=== PATIENT | female | born 1970 | race Caucasian/White ===

== ENCOUNTER → 2017-02-28 | Outpatient (CLI) | payer BC ==
--- NOTE | 2017-02-28 10:38 | KCIC ---
DATE: 02/28/2017 EXAM: MAMMO WHITNEY SCREENING BILATERAL HISTORY: Routine screening COMPARISON: 04/06/2015 The breast parenchyma shows scattered fibroglandular densities. Breast parenchyma level B. FINDINGS: 2-D and 3-D tomosynthesis imaging was performed in CC and MLO projections. There is a smooth 1.5 cm nodule at approximately the 3:00 location anteriorly in the left breast. It appears to have decreased slightly in size since the 2014 study. No new or enlarging breast densities are seen. Benign-appearing lymph node type densities are present in the axillary regions. No suspicious microcalcifications have developed. IMPRESSION: Stable mammograms without evidence of malignancy. BI-RADS CATEGORY: 2 BENIGN FINDING(S) RECOMMENDED FOLLOW-UP: 12M 12 MONTH FOLLOW-UP PQRS compliance statement: Patient information was entered into a reminder system with a target due date for the next mammogram. Mammography is a sensitive method for finding small breast cancers, but it does not detect them all and is not a substitute for careful clinical examination. A negative mammogram does not negate a clinically suspicious finding and should not result in delay in biopsying a clinically suspicious abnormality. "Our facility is accredited by the [employer] Mammography [employer]."
== END | disposition home or self-care (01) ==
LOC: KCIC MAMMO 07:48
PROVIDERS: ATTEND Family Medicine
DX: Z12.31 Encounter for screening mammogram for malignant neoplasm of breast (principal)
CPT/HCPCS: 77063; G0202; 77067

== ENCOUNTER → 2020-05-10 | Outpatient (CLI) | payer BC ==
--- NOTE | 2020-05-10 16:25 | KCIC ---
Bilateral digital screening mammograms: Reason for examination: Routine screening. Comparison is made to previous studies dated back to 04/06/2015. Interpretation was made with the benefit of CAD. The skin and nipples show no abnormalities. No abnormal axillary lymph nodes are seen. The breast parenchyma shows scattered fibroglandular density. (Breast density: Category B.) There continues to be a small nodule present in the 1:00 position anteriorly in the left breast which is stable. There also continues to be a small patch of parenchymal density present in the central 3:00 B position of the left breast which is stable. There are no new dominant masses, suspicious calcifications or architectural distortions. Impression: No evidence of malignancy. Recommend routine screening. BI-RADS Category 2: Benign. "Our facility is accredited by the [employer] Mammography [employer]." This patient's information has been entered into a reminder system for the patient to be notified with the results of her examination and a target date for the next mammogram. Electronically signed by: Leela Rodriguez MD (05/10/2020 4:22 PM) [id number]
== END ==
LOC: KCIC MAMMO 15:30
PROVIDERS: ATTEND Family Medicine
DX: Z12.31 Encounter for screening mammogram for malignant neoplasm of breast (principal)
CPT/HCPCS: 77067

== ENCOUNTER → 2021-03-20 | Day surgery (SDC) | payer BC ==
[~2021-03-20] VITALS: Ht 165.1 cm; Wt 80.0 kg
[~2021-03-20] MED LIST: ALPR0.5T6 PO; ATOR20TA PO; BACITRACIN TOPICAL OINT PACKET. TP ONE; BUPIVACAINE MPF 0.25% 30 ML VIAL. ONE; CHOL500021 PO; CYCL10TA2 PO; ESTR30CR VG; HYDROmorphone 2 MG/ML VIAL IVP PRN; IV RINGERS,LACTATED 1000ML 1,000 ML IV SCH; LEVO75TA5 PO; LIDOCAINE 2% PF 5 ML VIAL. ONE; MIDAZOLAM HCL/PF 2 MG/2 ML VIAL. ONE; MORPHINE SULFATE 2 MG/ML INJ. IVP PRN; MULT-245 PO; OMEG1CAP50 PO; ONDANSETRON PF 4 MG/2 ML VIAL. ONE; PROCHLORPERAZINE 10 MG/2 ML VIAL. IVP PRN; PROPOFOL 10 MG/ML (20ML) VIAL. IV ONE; ceFAZolin SODIUM IV Push 1 GM VIAL. IVP PRN; fentaNYL PF VIAL 100 MCG/2 ML VIAL IVP PRN
[2021-03-20 10:43] VITALS: BP 146/94
--- NOTE | 2021-03-20 14:31 | PDOC4 ---
OPERATIVE NOTE Date: Date: Mar 20, 2021 Pre-Op Diagnosis: De Quervain's tenosynovitis of left wrist Post-Op Diagnosis: Same Procedure Performed: Release of first dorsal compartment, left wrist Surgeon: Bhumi Gongora MD Anesthesia Type: Sedation and local anesthesia with 1% lidocaine + 1:100,000 epinephrine Blood Loss: 10mL Specimans Obtained: None Findings: See operative note Complications: None Operative Note: Indications: Ms. Angelo is a 50yo female with a history of pain over her left radial styloid as well as a popping sensation over this area who failed conservative management and did not desire steroid injections. Therefore she presents for operative release of her first dorsal compartment. Procedure: Informed consent was obtained in the perioperative holding area. Risks, benefits, and alternatives were discussed including the risks of bleeding, infection, inadequate release, injury to surrounding tendons/nerves/vessels with residual pain or numbness. The patient understood the above and desired to proceed. The patient was taken to the OR and placed on the OR table in the supine position. A timeout was completed verifying the correct patient and procedure. Sedation was given by anesthesia and the left radial wrist was anesthetized with 1% lidocaine with epinephrine. The extremity was exsanguinated and tourniquet pressure applied. A horizontal incision was made approximately 2 cm proximal to the radial styloid. Tenotomy scissors were then used to spread the subcutaneous tissues. The superficial branch of the radial sensory nerve was identified and protected. The dissection continued to the tendon sheath which was incised longitudinally proximally and distally to release the APL and EPB tendons. The tendons were individually elevated from the wound to ensure adequate release. The wound was irrigated with saline. The tourniquet was released and total inflation time documented. Hemostasis was achieved with cautery. The deep dermis was closed with 4-0 Vicryl suture and the skin was closed with running 4-0 Monocryl suture. The patient tolerated the procedure well. BHUMI GONGORA MD Mar 20, 2021 14:31
[2021-03-20 14:55] VITALS: BP 125/66
== END | disposition home or self-care (01) ==
LOC: SURG 10:19
PROVIDERS: ATTEND Plastic Surgery
DX: M65.4 Radial styloid tenosynovitis [de Quervain] (principal); E78.00 Pure hypercholesterolemia, unspecified; E03.9 Hypothyroidism, unspecified; F41.9 Anxiety disorder, unspecified; G47.30 Sleep apnea, unspecified; Z87.440 Personal history of urinary (tract) infections; Z79.899 Other long term (current) drug therapy; Z98.890 Other specified postprocedural states; Z72.89 Other problems related to lifestyle; Z88.8 Allergy status to other drugs, medicaments and biological substances
CPT/HCPCS: 25000; A4930; A6402; J0690; J2250; J2405; J2704; J3490; A4657; A6452

== ENCOUNTER 2021-04-28 08:21 | Day surgery (SDC) | payer BC ==
[~2021-04-28] VITALS: Ht 165.1 cm; Wt 81.0 kg
[~2021-04-28 08:21] MED LIST changes: -BACITRACIN TOPICAL OINT PACKET. TP ONE; -BUPIVACAINE MPF 0.25% 30 ML VIAL. ONE; +CYCL10TA19 PO; -CYCL10TA2 PO; -LIDOCAINE 2% PF 5 ML VIAL. ONE; -MIDAZOLAM HCL/PF 2 MG/2 ML VIAL. ONE; -ONDANSETRON PF 4 MG/2 ML VIAL. ONE; -PROPOFOL 10 MG/ML (20ML) VIAL. IV ONE; -ceFAZolin SODIUM IV Push 1 GM VIAL. IVP PRN
[2021-04-28] MEDS ORDERED: fentaNYL PF VIAL 100 MCG/2 ML VIAL ONE (08:31)
[2021-04-28] MEDS ORDERED: FAMOTIDINE 20 MG/2 ML VIAL ONE (08:32)
[2021-04-28] MEDS ORDERED: DEXAMETHASONE SOD PHOS 4 MG/ML VIAL ONE (08:32)
[2021-04-28] MEDS ORDERED: KETOROLAC 30 MG/ML VIAL. ONE (08:32)
[2021-04-28] MEDS ORDERED: LIDOCAINE 2% PF 5 ML VIAL. ONE (08:32)
[2021-04-28] MEDS ORDERED: PROPOFOL 10 MG/ML (20ML) VIAL. IV ONE (08:33)
[2021-04-28] MEDS ORDERED: ONDANSETRON PF 4 MG/2 ML VIAL. ONE (08:33)
[2021-04-28] MEDS ORDERED: SCOPOLAMINE 1.5MG PATCH. TD ONE ×2 (09:00→09:15)
[2021-04-28 09:06] VITALS: BP 128/69
[2021-04-28] MEDS ORDERED: TRAM50TA PO (09:34)
--- NOTE | 2021-04-28 09:37 | DISCH ---
DISCHARGE INSTRUCTIONS Condition on Discharge Condition on Discharge: Stable Activity After Discharge Activity Instructions for Disc: Activity as tolerated, Avoid exertion Bathing Instructions: Shower-keep dressing dry Driving Instructions after Dis: Do not drive today Weight Bearing Status after Di: Full weight bearing Wound Incision Care Wound/Incision Care: Ice to area for comfort Other wound/incision instructi: May change dressings Saturday WESLEY VASQUEZ Jr. DO Apr 28, 2021 09:37
[2021-04-28] MEDS ORDERED: BUPIVACAINE-EPI 0.25% 30 ML VIAL KIT. ONE (09:58)
--- NOTE | 2021-04-28 10:19 | OP ---
DATE OF SURGERY: 04/28/2021 PREOPERATIVE DIAGNOSIS: Meniscal tear with degenerative joint disease, left knee. POSTOPERATIVE DIAGNOSIS: Meniscal tear with degenerative joint disease, left knee. PROCEDURE: Left knee arthroscopy with partial lateral meniscectomy; joint debridement, lateral compartment; synovectomy, complete. SURGEON: Pop Keller Jr, DO ASSIGNER: Austen Roth. ANESTHESIA: General. COMPLICATIONS: None. ESTIMATED BLOOD LOSS: 20 mL. Standard dictation for certified dental assistant. DESCRIPTION OF PROCEDURE: The patient was taken to the operative suite, given a general anesthetic. Left lower extremity was then prepped and draped in a sterile fashion. Incision was made with the inferomedial and inferolateral portals, which were established. The visualization of the patellofemoral joint noted this to be intact and tracking was noted to be within normal limits. The chondral surfaces were also noted to be intact as well. The scope was then taken in the medial and lateral gutters. No loose body was noted at this point. The medial compartment was entered. There was no meniscal tear noted at this point. Therefore, the probing of the meniscus noted this to be stable. Chondral surfaces intact. There was no softening of the tibial or femoral sides of the joint. The ACL had a partial tear. Approximately 70% of the ACL was still intact and was stable with probing at this point. Therefore, the scope was then taken into the lateral compartment. There was noted to be a centralized tear of the lateral meniscus along the middle third to anterior portion of this. This was debrided back to stable tissue, only inner one-fourth was torn and frayed at this point. Probing revealed this to be stable at the end of this partial lateral meniscectomy. The significance problems on the femoral side of the joint were the deep grade 2 and 3 changes of the femoral condyle from 0 up to approximately 45 degrees of flexion. This was debrided back to stable tissue. No tibial involvement was noted at this point. This was reinspected. No new problems were noted. Therefore, this was thoroughly irrigated and suctioned dry. All instruments were then removed. Wounds were then reapproximated after local was placed. Sterile dressing was applied. The patient was then taken from the operative bed to the postoperative bed and taken to the PACU in stable condition. NESTOR DR: Osito TID: [id number]
[2021-04-28 10:46] VITALS: BP 124/65
[2021-04-28] MEDS ORDERED: SEVOFLURANE 16 TO 30 MINUTES. IH ONE (11:27)
== END 2021-04-28 11:19 | disposition home or self-care (01) ==
LOC: SURG 08:21
PROVIDERS: ATTEND Orthopaedic Surgery
DX: S83.282A Other tear of lateral meniscus, current injury, left knee, initial encounter (principal); M17.12 Unilateral primary osteoarthritis, left knee; E78.00 Pure hypercholesterolemia, unspecified; E03.9 Hypothyroidism, unspecified; G47.30 Sleep apnea, unspecified; F41.9 Anxiety disorder, unspecified; Z87.440 Personal history of urinary (tract) infections; Z79.899 Other long term (current) drug therapy; Z98.890 Other specified postprocedural states; Z87.891 Personal history of nicotine dependence; X58.XXXA Exposure to other specified factors, initial encounter; Y93.89 Activity, other specified; Y92.89 Other specified places as the place of occurrence of the external cause; Y99.8 Other external cause status
CPT/HCPCS: 29881; A4930; J0690; J1100; J1885; J2405; J2704; J3010; J3490

== ENCOUNTER → 2021-07-24 | Outpatient (CLI) | payer BC ==
[~2021-07-24] MED LIST changes: -HYDROmorphone 2 MG/ML VIAL IVP PRN; -IV RINGERS,LACTATED 1000ML 1,000 ML IV SCH; -MORPHINE SULFATE 2 MG/ML INJ. IVP PRN; -PROCHLORPERAZINE 10 MG/2 ML VIAL. IVP PRN; +TRAM50TA PO; -fentaNYL PF VIAL 100 MCG/2 ML VIAL IVP PRN
--- NOTE | 2021-07-24 11:34 | KCIC ---
Bilateral digital screening mammograms: Reason for examination: Routine screening. Comparison is made to previous studies dated back to 04/06/2015. Interpretation was made with the benefit of CAD. The skin and nipples show no abnormalities. No abnormal axillary lymph nodes are seen. The breast par enchyma shows scattered fibroglandular density. (Breast density: Category B.) There continues to be a small nodule anteriorly in the 1:00 position of the left breast which is stable. There are no new do minant masses, suspicious calcifications or architectural distortions. Impression: No evidence of malignancy. Recommend routine screening. BI-RADS Category 2: Benign. "Our facility is accredited by the [employer] Mammography [employer]." This patient's information has been entered into a reminder system for the patient to be notified wit h the results of her examination and a target date for the next mammogram. Electronically signed by: Leela Rodriguez MD (07/24/2021 11:31 AM) [email or web address]
== END ==
LOC: KCIC MAMMO 10:46
PROVIDERS: ATTEND Family Medicine
DX: Z12.31 Encounter for screening mammogram for malignant neoplasm of breast (principal)
CPT/HCPCS: 77067